=== PATIENT | male | born 1930 | race Caucasian/White ===

== ENCOUNTER → 2018-02-12 | Outpatient (CLI) | payer OTHER ==
[~2018-02-12] MED LIST: AEC81 PO; AMLO10TA6 PO; FOLI1TAB15 PO; HYDR-3420 PO
== END | disposition home or self-care (01) ==
LOC: SHCH 10:50
PROVIDERS: ATTEND Internal Medicine Cardiovascular Disease
DX: I08.0 Rheumatic disorders of both mitral and aortic valves (principal); I10 Essential (primary) hypertension; F17.200 Nicotine dependence, unspecified, uncomplicated
CPT/HCPCS: 93306

== ENCOUNTER → 2018-02-19 | Outpatient (CLI) | payer OTHER ==
[~2018-02-19] MED LIST changes: +REGADENOSON 0.4 MG/5 ML PF SYG IVP SCH
== END | disposition home or self-care (01) ==
LOC: SHCH 09:18
PROVIDERS: ATTEND Internal Medicine Cardiovascular Disease
DX: I25.10 Atherosclerotic heart disease of native coronary artery without angina pectoris (principal); I10 Essential (primary) hypertension; E78.5 Hyperlipidemia, unspecified; M19.90 Unspecified osteoarthritis, unspecified site; Z87.891 Personal history of nicotine dependence
CPT/HCPCS: 78452; 93017; 96374; A9500 ×2; J2785

== ENCOUNTER 2018-02-28 11:00 | Inpatient (IN) | payer OTHER ==
[~2018-02-28] VITALS: Ht 182.9 cm; Wt 72.4 kg
[2018-02-28 11:21] VITALS: BP 138/67
[2018-02-28 11:27] LABS: BASOPHILS % (AUTO) 1.8 % (0.0-5.0); EOSINOPHILS % (AUTO) 3.8 % (0.0-8.0); HEMATOCRIT 39.1 % (42-54); LYMPHOCYTES % (AUTO) 32.7 % (21.0-51.0); MEAN CORPUSCULAR HEMOGLOBIN 30.7 pg (27.0-33.0); MEAN CORPUSCULAR HGB CONC 34.8 g/dL (32.0-36.0); MEAN CORPUSCULAR VOLUME 88.3 fL (79-99); MONOCYTES % (AUTO) 9.9 % (3.0-13.0); NEUTROPHILS % (AUTO) 51.8 % (40.0-77.0); NUCLEATED RED BLOOD CELLS 0.1 % (0.0-0.19); PLATELET COUNT (AUTO) 212 K/uL (130-400); RED BLOOD CELL COUNT(AUTO) 4.43 MIL/uL (4.50-6.20); RED CELL DISTRIBUTION WIDTH 14.2 % (11.0-15.5); WHITE BLOOD COUNT (AUTO) 6.1 K/uL (4.8-10.8)
[2018-02-28 11:30] LABS: APPEARANCE,URINE Cloudy (CLEAR); BILIRUBIN,URINE Negative (NEGATIVE); COLOR,URINE Yellow (YELLOW); GLUCOSE, URINE (UA) Negative (NEGATIVE); KETONES,URINE Negative (NEGATIVE); LEUKOCYTE ESTERASE ,URINE Large (NEGATIVE); NITRATE,URINE Negative (NEGATIVE); OCCULT BLOOD,URINE Negative (NEGATIVE); PROTEIN,URINE POS 1+ (NEGATIVE)
[2018-02-28 11:38] LABS: CREATININE 1.5 mg/dL (0.5-1.5); POTASSIUM 3.4 mmol/L (3.5-5.1)
[2018-02-28] MEDS ORDERED: HYDR-3420 PO (11:42)
[2018-02-28] MEDS ORDERED: AMLO10TA6 PO (11:42)
[2018-02-28] MEDS ORDERED: AEC81 PO (11:42)
[2018-02-28] MEDS ORDERED: FOLI1TAB15 PO (11:42)
[2018-02-28 11:51] LABS: BACTERIA,URINE Many /HPF (None Seen); RBC,URINE None Seen /HPF (0-1); SQUAMOUS EPITHELIAL CELL,UR Rare /HPF (0-2); WBC,URINE >100 /HPF (0-1)
[2018-02-28 11:53] LABS: INR 0.96 (0.85-1.15); PROTHROMBIN TIME 10.1 SEC (9.6-11.6)
[2018-03-02] VITALS (26 sets, daily range): BP systolic 103–150; BP diastolic 48–108
[2018-03-02] MEDS ORDERED: SODIUM CHLORIDE 0.9% 1000ML 0 ML IV ONE (05:39)
[2018-03-02] MEDS ORDERED: SODIUM CHLORIDE 0.9% 1000ML 1,000 ML IV ONE (05:49)
[2018-03-02] MEDS ORDERED: CEFAZOLIN SODIUM 1 GM VIAL ONE (05:49)
[2018-03-02] MEDS ORDERED: HEPARIN SODIUM 1000UNIT/ML 10ML VIAL ONE (06:49)
[2018-03-02] MEDS ORDERED: IODIXANOL 320 MG/ML 100 ML VIAL ONE (06:50)
[2018-03-02] MEDS ORDERED: DEXAMETHASONE SOD PHOSPHATE 10MG/ML 1ML VIAL ONE (07:01)
[2018-03-02] MEDS ORDERED: LIDOCAINE PF 2% 5ML ABBOJECT ONE (07:01)
[2018-03-02] MEDS ORDERED: PROPOFOL 10 MG/ML 20ML VIAL IV ONE (07:01)
[2018-03-02] MEDS ORDERED: NEOSTIGMINE 5MG/5ML SYR IV ONE (07:01)
[2018-03-02] MEDS ORDERED: ROCURONIUM 10MG/1ML SYR 10 MG/ML ML ONE (07:01)
[2018-03-02] MEDS ORDERED: ONDANSETRON HCL 4 MG/2 ML VIAL ONE (07:01)
[2018-03-02] MEDS ORDERED: MIDAZOLAM HCL 1 MG/ML 2ML VIAL ONE (07:01)
[2018-03-02] MEDS ORDERED: FENTANYL CITRATE PF 50 MCG/1 ML 2ML VIAL ONE (07:01)
[2018-03-02] MEDS ORDERED: GLYCOPYRROLATE 1 MG/5 ML SYRINGE ONE (07:03)
[2018-03-02] MEDS ORDERED: EPHEDRINE SULFATE 50 MG/ML AMPULE ONE (07:04)
[2018-03-02] MEDS ORDERED: ONDANSETRON HCL 4 MG/2 ML VIAL IV PRN (09:30)
[2018-03-02] MEDS ORDERED: MORPHINE SULFATE 5 MG/ML VIAL IV PRN (09:30)
[2018-03-02] MEDS ORDERED: ACETAMINOPHEN 325 MG TAB PO PRN ×2 (09:30)
[2018-03-02] MEDS ORDERED: TEMAZEPAM 30 MG CAP PO PRN (09:30)
[2018-03-02] MEDS ORDERED: NOREPINEPHRINE 4MG/NS 250ML 250 ML IV PRN (09:30)
[2018-03-02] MEDS ORDERED: MORPHINE SULFATE 4 MG/1ML SYG IV PRN (09:30)
[2018-03-02] MEDS ORDERED: ACETAMINOPHEN-CODEINE 300/30MG TAB PO PRN ×2 (09:30)
[2018-03-02] MEDS ORDERED: NITROGLYCERIN 50 MG/D5% WATER 250 BOT IV PRN (09:30)
[2018-03-02] MEDS: SODIUM CHLORIDE 0.9% 1000ML 1,000 ML IV SCH ×2 (13:08→18:50)
[2018-03-02] MEDS: CEFAZOLIN SODIUM 1 GM VIAL IVP SCH (15:05)
[2018-03-02] MEDS: HYDRALAZINE HCL 10 MG TABLET PO SCH ×2 (21:00→21:37)
[2018-03-03] VITALS (16 sets, daily range): BP systolic 117–150; BP diastolic 58–86
[2018-03-03] MEDS ORDERED: CEFAZOLIN SODIUM 1 GM VIAL ONE (00:11)
[2018-03-03] MEDS: CEFAZOLIN SODIUM 1 GM VIAL IVP SCH (00:18)
[2018-03-03] MEDS: SODIUM CHLORIDE 0.9% 1000ML 1,000 ML IV SCH (00:55)
[2018-03-03 04:08] LABS: HEMATOCRIT 33.4 % (42-54); MEAN CORPUSCULAR HEMOGLOBIN 30.7 pg (27.0-33.0); MEAN CORPUSCULAR HGB CONC 34.7 g/dL (32.0-36.0); MEAN CORPUSCULAR VOLUME 88.5 fL (79-99); PLATELET COUNT (AUTO) 148 K/uL (130-400); RED BLOOD CELL COUNT(AUTO) 3.78 MIL/uL (4.50-6.20); RED CELL DISTRIBUTION WIDTH 14.3 % (11.0-15.5); WHITE BLOOD COUNT (AUTO) 9.4 K/uL (4.8-10.8)
[2018-03-03 04:25] LABS: CREATININE 1.4 mg/dL (0.5-1.5); POTASSIUM 3.1 mmol/L (3.5-5.1)
[2018-03-03] MEDS ORDERED: POTASSIUM CHLORIDE 10% ELIXIR 20 MEQ/15 ML UDCUP ONE ×2 (10:56→13:19)
[2018-03-03] MEDS: FOLIC ACID 1 MG TABLET PO SCH (11:02)
[2018-03-03] MEDS: HYDRALAZINE HCL 10 MG TABLET PO SCH ×2 (11:02→23:04)
[2018-03-03] MEDS: AMLODIPINE BESYLATE 5 MG TAB PO SCH (11:02)
[2018-03-03] MEDS: ASPIRIN 81 MG EC TAB PO SCH (11:02)
[2018-03-03] MEDS ORDERED: POTASSIUM CHLORIDE 20MEQ/100ML 100 ML IV PRN (13:30)
[2018-03-03] MEDS ORDERED: LIDOCAINE HCL-MPF 1% 2ML VIAL IVP PRN (13:30)
[2018-03-03] MEDS ORDERED: POTASSIUM CHLORIDE 20 MEQ ERTAB PO PRN (13:30)
[2018-03-03] MEDS: POTASSIUM CHLORIDE 10% ELIXIR 20 MEQ/15 ML UDCUP PO PRN ×3 (17:50→23:03)
[2018-03-04 03:50] VITALS: BP 147/77
[2018-03-04 04:06] LABS: CREATININE 1.3 mg/dL (0.5-1.5); POTASSIUM 3.6 mmol/L (3.5-5.1)
[2018-03-04] MEDS: POTASSIUM CHLORIDE 10% ELIXIR 20 MEQ/15 ML UDCUP PO PRN ×2 (05:36→08:16)
[2018-03-04 07:20] VITALS: BP 144/71
[2018-03-04] MEDS: FOLIC ACID 1 MG TABLET PO SCH (08:17)
[2018-03-04] MEDS: ASPIRIN 81 MG EC TAB PO SCH ×2 (08:18→08:25)
[2018-03-04] MEDS: HYDRALAZINE HCL 10 MG TABLET PO SCH (08:18)
[2018-03-04] MEDS: AMLODIPINE BESYLATE 5 MG TAB PO SCH (08:24)
[2018-03-04 11:22] VITALS: BP 142/72
== END 2018-03-04 14:10 | disposition home or self-care (01) | DRG 269 ==
LOC: EDSTATUS 11:00 → OBSVTOIN 03-02 05:30 → INTOOBSV 03-02 05:30 → DAHIP 03-02 05:30 → 2CH 03-02 10:08 → 2AH 03-03 18:57
PROVIDERS: ADMIT Internal Medicine Cardiovascular Disease; ATTEND Internal Medicine Cardiovascular Disease
PROC: B4101ZZ Fluoroscopy of Abdominal Aorta using Low Osmolar Contrast (ICD-10-PCS; principal; 2018-03-02)
PROC: 04V03DZ Restriction of Abdominal Aorta with Intraluminal Device, Percutaneous Approach (ICD-10-PCS; 2018-03-02)
PROC: 047D3ZZ Dilation of Left Common Iliac Artery, Percutaneous Approach (ICD-10-PCS; 2018-03-02)
PROC: 047C3ZZ Dilation of Right Common Iliac Artery, Percutaneous Approach (ICD-10-PCS; 2018-03-02)
PROC: 04703ZZ Dilation of Abdominal Aorta, Percutaneous Approach (ICD-10-PCS; 2018-03-02)
DX: I71.4 Abdominal aortic aneurysm, without rupture (principal); E87.6 Hypokalemia; I10 Essential (primary) hypertension; Z86.79 Personal history of other diseases of the circulatory system; Z82.49 Family history of ischemic heart disease and other diseases of the circulatory system
CPT/HCPCS: 34705; 34713; 36415; 71045; 80048; 81001; 83735; 84132; 85025; 85027; 85610; 85730; 86850; 86900; 86901; 86922; 93005; A4218; A4344; C1725; C1760; C1769; C1887; C1894; J0690; J1100; J1644; J2001; J2250; J2405; J2704; J2710; J3010; J3490; J7030; Q9967

== ENCOUNTER → 2018-06-27 | Outpatient (CLI) | payer OTHER ==
[~2018-06-27] MED LIST changes: -AMLO10TA6 PO; +AMLO10TA7 PO; +IOHEXOL 350 MG/ML 100ML INFUS..BTL IV ONE; -REGADENOSON 0.4 MG/5 ML PF SYG IVP SCH
== END | disposition home or self-care (01) ==
LOC: RAH 08:15
PROVIDERS: ATTEND Internal Medicine Cardiovascular Disease
DX: I71.4 Abdominal aortic aneurysm, without rupture (principal); N28.1 Cyst of kidney, acquired
CPT/HCPCS: 74174; Q9967